=== PATIENT | male | born 1960 | race Two or more races ===

== ENCOUNTER 2017-02-21 11:55 | Emergency (ER) | payer OTHER ==
[~2017-02-21] VITALS: Ht 167.6 cm; Wt 70.3 kg
[~2017-02-21 11:55] MED LIST: IBUPROFEN600 MG ORAL
[2017-02-21 12:35] VITALS: BP 135/83
[2017-02-21 14:30] VITALS: BP 137/84
[2017-02-21 14:51] LABS: BASOPHILS % (AUTO) 0.5 % (0.0-2.0); EOSINOPHILS % (AUTO) 1.2 % (0.0-3.0); HEMATOCRIT 45.1 % (42.0-52.0); HEMOGLOBIN 14.5 G/DL (14.2-18.0); LYMPHOCYTES % (AUTO) 18.1 % (20.0-45.0); MEAN CORPUSCULAR VOLUME 94 FL (80-99); MONOCYTES % (AUTO) 4.8 % (1.0-10.0); NEUTROPHILS % (AUTO) 75.4 % (45.0-75.0); PLATELET COUNT 258 K/UL (150-450); RED BLOOD COUNT 4.81 M/UL (4.70-6.10); RED CELL DISTRIBUTION WIDTH 12.1 % (11.6-14.8); WHITE BLOOD COUNT 11.4 K/UL (4.8-10.8)
[2017-02-21 15:09] LABS: ALANINE AMINOTRANSFERASE 35 U/L (12-78); ALBUMIN 3.7 G/DL (3.4-5.0); ALKALINE PHOSPHATASE 107 U/L (46-116); ANION GAP 8 mmol/L (5-15); ASPARTATE AMINO TRANSFERASE 23 U/L (15-37); BILIRUBIN,TOTAL 0.3 MG/DL (0.2-1.0); BLOOD UREA NITROGEN 9 mg/dL (7-18); CALCIUM 9.5 MG/DL (8.5-10.1); CARBON DIOXIDE 28 MMOL/L (21-32); CHLORIDE 104 MMOL/L (98-107); CREATININE 0.9 MG/DL (0.55-1.30); POTASSIUM 5.3 MMOL/L (3.5-5.1); SODIUM 139 MMOL/L (136-145)
--- NOTE | 2017-02-21 15:09 | Emergency Room Report ---
History of Present Illness General Chief Complaint: Headache Source: Patient (Sumeet Martel) Present Illness HPI Patient 56-year-old male presented after increased right-sided headache. Patient had acute onset of symptoms. He denied any fever. He reports having some associated left arm numbness. He denies any chest pain. Pain had onset during work. Symptoms resolve spontaneously. He denied any neck pain or stiffness. (Sumeet Martel) Allergies: Coded Allergies: No Known Allergies (Unverified , 10/14/13) Patient History Past Medical History: see triage record Reviewed Nursing Documentation: PMH: Agreed, PSxH: Agreed (Smueet Martel) Nursing Documentation-PMH Past Medical History: No Stated History (Sumeet Martel) Review of Systems All Other Systems: negative except mentioned in HPI (Sumeet Martel) Physical Exam Vital Signs Date Time Temp Pulse Resp B/P (MAP) Pulse Ox O2 Delivery O2 Flow Rate FiO2 02/21/17 12:05 98.2 73 20 145/83 99 Room Air Sp02 EP Interpretation: reviewed, normal General Appearance: normal inspection, well appearing, no apparent distress, alert, GCS 15 Head: atraumatic ENT: normal ENT inspection, hearing grossly normal, normal voice Neck: normal inspection, full range of motion, supple, no bony tend Respiratory: normal inspection, lungs clear, normal breath sounds, no respiratory distress, no retraction, no wheezing Cardiovascular #1: regular rate, rhythm, no edema Gastrointestinal: normal inspection, normal bowel sounds, non tender, soft, no guarding, no hernia Genitourinary: no CVA tenderness Musculoskeletal: normal inspection, back normal, normal range of motion Neurologic: normal inspection, alert, oriented x3, responsive, 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 Differential diagnoses included but was not limited to skull fracture, subarachnoid hemorrhage, meningitis, aneurysm, mass lesion, intracranial hemorrhage.Because of complexity of patient's case laboratory testing and imaging studies were ordered. EKG interpreted by me showed normal sinus rhythm with a rate of 70 with nonspecific T wave abnormalities. CT the head read by radiology showed no evidence of acute intracranial hemorrhage or CVA. (Sumeet Martel) ER Course Please see above note from Dr. Martel. The patient was complaining about right occipital headache. When I examined him had a nonfocal neurologic exam. The pain was 5/10. I ordered Toradol. Labs were significant for an elevated potassium which I felt was laboratory error. This was repeated. His repeat potassium was 4.6. He had a borderline elevated glucose also. EKG was reviewed by me also - NSR, nl intervals, NSSTTW changes with inverted T waves laterally. The patient denies any cardiac symptomatology. D dimer was negative. The patient was pain-free after the Toradol. He was advised to followup with copies of his labs and his EKG was his own doctor. The patient is stable for outpatient observation and treatment. Laboratory Tests Test 02/21/17 14:35 02/21/17 15:25 White Blood Count 11.4 K/UL (4.8-10.8) H Red Blood Count 4.81 M/UL (4.70-6.10) Hemoglobin 14.5 G/DL (14.2-18.0) Hematocrit 45.1 % (42.0-52.0) Mean Corpuscular Volume 94 FL (80-99) Mean Corpuscular Hemoglobin 30.2 PG (27.0-31.0) Mean Corpuscular Hemoglobin Concent 32.1 G/DL (32.0-36.0) Red Cell Distribution Width 12.1 % (11.6-14.8) Platelet Count 258 K/UL (150-450) Mean Platelet Volume 7.2 FL (6.5-10.1) Neutrophils (%) (Auto) 75.4 % (45.0-75.0) H Lymphocytes (%) (Auto) 18.1 % (20.0-45.0) L Monocytes (%) (Auto) 4.8 % (1.0-10.0) Eosinophils (%) (Auto) 1.2 % (0.0-3.0) Basophils (%) (Auto) 0.5 % (0.0-2.0) Prothrombin Time 10.0 SEC (9.30-11.50) Prothrombin Time INR 1.0 (0.9-1.1) PTT 29 SEC (23-33) D-Dimer 0.43 mg/L FEU (0.00-0.49) Sodium Level 139 MMOL/L (136-145) 139 MMOL/L (136-145) Potassium Level 5.3 MMOL/L (3.5-5.1) H 4.6 MMOL/L (3.5-5.1) Chloride Level 104 MMOL/L (98-107) 104 MMOL/L (98-107) Carbon Dioxide Level 28 MMOL/L (21-32) 27 MMOL/L (21-32) Anion Gap 8 mmol/L (5-15) 8 mmol/L (5-15) Blood Urea Nitrogen 9 mg/dL (7-18) 9 mg/dL (7-18) Creatinine 0.9 MG/DL (0.55-1.30) 0.8 MG/DL (0.55-1.30) Estimate Glomerular Filtration Rate > 60 mL/min (>60) > 60 mL/min (>60) Glucose Level 109 MG/DL (74-106) H 106 MG/DL (74-106) Calcium Level 9.5 MG/DL (8.5-10.1) 9.3 MG/DL (8.5-10.1) Total Bilirubin 0.3 MG/DL (0.2-1.0) Aspartate Amino Transferase (AST) 23 U/L (15-37) Alanine Aminotransferase (ALT) 35 U/L (12-78) Alkaline Phosphatase 107 U/L (46-116) Total Creatine Kinase 316 U/L (26-308) H Creatine Kinase MB 6.8 NG/ML (0.0-3.6) H Creatine Kinase MB Relative Index 2.1 Troponin I 0.000 ng/mL (0.000-0.056) Pro-B-Type Natriuretic Peptide 51 pg/mL (0-125) Total Protein 7.3 G/DL (6.4-8.2) Albumin 3.7 G/DL (3.4-5.0) Globulin 3.6 g/dL Albumin/Globulin Ratio 1.0 (1.0-2.7) (Royer Romo M.D.) EKG Diagnostic Results Rate: normal Rhythm: NSR ST Segments: no acute changes - Nonspecific ST-T wave changes (Royer Romo M.D.) Rhythm Strip Diag. Results EP Interpretation: yes Rhythm: NSR, no PVC's, no ectopy (Royer Romo M.D.) Last Vital Signs Date Time Temp Pulse Resp B/P (MAP) Pulse Ox O2 Delivery O2 Flow Rate FiO2 02/21/17 14:30 59 16 137/84 99 Room Air 02/21/17 12:35 97.1 (Sumeet Martel) Last Vital Signs Date Time Temp Pulse Resp B/P (MAP) Pulse Ox O2 Delivery O2 Flow Rate FiO2 02/21/17 16:20 97.1 02/21/17 16:20 93 16 137/86 98 Room Air Status: improved (Royer Romo M.D.) Disposition: HOME, SELF-CARE Condition: Improved Scripts Ibuprofen* (MOTRIN*) 600 Mg Tablet 600 MG ORAL Q6H Y for For Pain, #16 TAB Prov: Royer Romo M.D. 02/21/17 Referrals: NOT CHOSEN ARIN/,REFERRING (PCP) Sumeet Martel Feb 21, 2017 15:09 Royer Romo M.D. Feb 21, 2017 16:07
[2017-02-21 15:29] LABS: CKMB 6.8 NG/ML (0.0-3.6); CREATINE KINASE 316 U/L (26-308)
[2017-02-21] MEDS ORDERED: Ketorolac 30mg Inj IV ONE (15:30)
[2017-02-21 15:54] LABS: ANION GAP 8 mmol/L (5-15); BLOOD UREA NITROGEN 9 mg/dL (7-18); CALCIUM 9.3 MG/DL (8.5-10.1); CARBON DIOXIDE 27 MMOL/L (21-32); CHLORIDE 104 MMOL/L (98-107); CREATININE 0.8 MG/DL (0.55-1.30); POTASSIUM 4.6 MMOL/L (3.5-5.1); SODIUM 139 MMOL/L (136-145)
[2017-02-21] MEDS ORDERED: IBUPROFEN600 MG ORAL (16:08)
[2017-02-21 16:20] VITALS: BP 137/86
--- NOTE | 2017-02-22 11:09 | Diagnostic Imaging Report ---
Indication: Headache Technique: Contiguous 5 mm thick transaxial imaging of the head obtained in a Siem[employer] Sensation [address] scanner. Soft tissue and bone windows generated. Total Dose length Product (DLP): [address] Dose Index Volume (CTDIvol): 70.38, 0.15 mGy Comparison: none Findings: The size and configuration of the cortical sulci, basal cisterns, and ventricles are within normal limits for age. There is no mass effect, midline shift, or edema identified. There is no evidence of acute hemorrhage or abnormal intra-axial or extra-axial fluid collections. The bones and soft tissues are unremarkable. There is opacification of the visualized part of the left maxillary sinus. Impression: No mass effect, edema or acute bleed. Sinusitis The CT scanner at [facility] is accredited by the [employer] and the scans are performed using dose optimization techniques as appropriate to a performed exam including Automatic Exposure control.
--- NOTE | 2017-02-22 12:51 | Diagnostic Imaging Report ---
Indication: Dyspnea Comparison: None A single view chest radiograph was obtained. Findings: Cardiomediastinal appearance is within normal limits for age. Pulmonary vascularity is appropriate. The diaphragmatic contour is smooth and costophrenic angles are sharp. No pleural effusions are identified. The bones are unremarkable. Impression: No acute findings
--- NOTE | 2017-02-22 20:18 | Cardiology Report ---
APPROVED REPORT EKG Measurement Heart [id number] [place] 132P60 [id number] Normal sinus rhythm T wave abnormality, consider lateral ischemia Abnormal ECG
--- NOTE | 2017-02-22 20:18 | Cardiology Report ---
APPROVED REPORT EKG Measurement Heart [id number] [place] 132P60 [id number] Normal sinus rhythm T wave abnormality, consider lateral ischemia Abnormal ECG
--- NOTE | 2017-02-22 20:18 | Cardiology Report ---
APPROVED REPORT EKG Measurement Heart [id number] [place] 132P60 [id number] Normal sinus rhythm T wave abnormality, consider lateral ischemia Abnormal ECG
== END 2017-02-21 16:20 | disposition home or self-care (01) ==
LOC: EMR 12:25
DX: R51 Headache (principal); E87.5 Hyperkalemia; R06.00 Dyspnea, unspecified
CPT/HCPCS: 36415; 70450; 71010; 80048; 80053; 82550; 82553; 83880; 84484; 85025; 85379; 85610; 85730; 93005; 96374; 99284; J1885